=== PATIENT | female | born 1955 | race Caucasian/White ===

== ENCOUNTER 2022-01-25 15:34 | Emergency (ER) | payer MEDICARE ==
[2022-01-25 16:40] LABS: INR-International Normal Ratio 1.2; PTT 27.5 sec (22.9-36.1); Prothrombin Time 15.3 sec (12.0-14.7)
[2022-01-25 16:48] LABS: ALT (SGPT) 14 U/L (8-55); AST (SGOT) 30 U/L (5-34); Albumin 2.9 g/dL (3.4-4.8); Alkaline Phosphatase 61 U/L (40-110); Anion Gap 15 mmol/L (10-20); BUN (Urea Nitrogen) 50 mg/dL (9.8-20.1); Bilirubin, Total 1.5 mg/dL (0.2-1.2); Calc. Creatinine Clearance 0 mL/min (70-130); Calcium 9.2 mg/dL (7.8-10.44); Carbon Dioxide 21 mmol/L (23-31); Chloride 112 mmol/L (98-107); Estimated GFR 61; Globulin 2.1 g/dL (2.4-3.5); Glucose 120 mg/dL (80-115); Lipase 11 U/L (8-78); Potassium 3.2 mmol/L (3.5-5.1); Sodium 145 mmol/L (136-145)
[2022-01-25 17:00] LABS: Anisocytosis MODERATE=16-30 cells (100X) (0-5/hpf); Band 16 % (5-11); Eosinophils 3 % (0-10); Hemoglobin 8.7 g/dL (12.0-16.0); Lymphocytes 4 % (21-51); MDiff Complete? YES; Mean Corpuscular HGB CONC 31.6 g/dL (32.0-36.0); Mean Corpuscular Hemoglobin 33.7 pg (27.0-31.0); Mean Platelet Volume 9.5 fL (7.4-10.4); Metamyelocyte 2 % (0-0); Monocytes 5 % (0-10); Myelocyte 3 % (0-0); Neutrophil 67 % (42-75); Platelet Count 128 thou/uL (130-400); Platelet Morphology Comment Appears Adequate; Polychromasia SLIGHT = 2-3 cells (100X) (0-2/hpf); RBC Distribution Width 16.1 % (11.5-14.5); Red Blood Cell (RBC) Count 2.58 mill/uL (4.20-5.40); Tear Drops SLIGHT = 2-5 cells (100X) (0-1/hpf); White Blood Cell (WBC) Count 9.2 thou/uL (4.8-10.8)
[2022-01-25 17:40] LABS: Bilirubin Negative (Negative); Blood, Urine Negative (Negative); Glucose, Urine (Dipstick) Negative (Negative); Ketone, Urine Negative (Negative); Leukocyte Negative (Negative); Nitrite Negative (Negative); Protein, Urine (Dipstick) Negative (Neg-Trace); Urobilinogen 0.2 mg/dL (Less than 2); pH, Urine 5.5 (5.0-9.0)
[2022-01-25 17:44] LABS: Clarity SL HAZY (Clear)
[2022-01-25 18:51] LABS: SARS-CoV-2 NAA Rapid Test Not Detected (NotDetected)
== END 2022-01-25 21:15 | disposition short-term general hospital (02) ==
LOC: NAV ERS 15:34
DX: K92.2 Gastrointestinal hemorrhage, unspecified (principal); G93.40 Encephalopathy, unspecified; Z20.822 Contact with and (suspected) exposure to COVID-19; E78.5 Hyperlipidemia, unspecified; I25.2 Old myocardial infarction; I10 Essential (primary) hypertension; F17.210 Nicotine dependence, cigarettes, uncomplicated; Z79.899 Other long term (current) drug therapy
CPT/HCPCS: 51701; 71045; 80053; 81003; 82140; 82274; 83690; 84484; 85025; 85610; 85730; 87040; 87086; 93005; U0002